=== PATIENT | male | born 1955 | race Caucasian/White ===

== ENCOUNTER 2017-10-17 07:14 | Day surgery (SDC) | payer BC ==
[~2017-10-17 07:14] MED LIST: NORMAL SALINE 1,000 ML IV PRN; ceFAZolin SODIUM 1 GM in DEXTROSE 5 % IN WATER 100 ML IV PRN
[2017-10-17] MEDS ORDERED: RINGER'S SOLUTION,LACTATED 1,000 ML IV ONE ×2 (07:55→09:10)
[2017-10-17 10:35] VITALS: BP 189/100
[2017-10-22 15:21] LABS: Stone Composition 2 DNR
== END 2017-10-17 07:15 | disposition home or self-care (01) ==
LOC: AMB 07:14
PROVIDERS: ATTEND Urology
PROC: 0T768DZ Dilation of Right Ureter with Intraluminal Device, Via Natural or Artificial Opening Endoscopic (ICD-10-PCS; 2017-10-17)
PROC: 0TF68ZZ Fragmentation in Right Ureter, Via Natural or Artificial Opening Endoscopic (ICD-10-PCS; principal; 2017-10-17 08:00)
DX: N20.0 Calculus of kidney (principal); N20.1 Calculus of ureter; N40.0 Benign prostatic hyperplasia without lower urinary tract symptoms; I10 Essential (primary) hypertension; F41.9 Anxiety disorder, unspecified; G47.39 Other sleep apnea; Z68.38 Body mass index [BMI] 38.0-38.9, adult